=== PATIENT | female | born 1995 | race Caucasian/White ===

== ENCOUNTER 2017-04-01 00:38 | Emergency (ER) | payer BC, OTHER ==
[~2017-04-01] VITALS: Ht 152.4 cm; Wt 59.0 kg
[2017-04-01] MEDS ORDERED: PREPARATION H C51 G1 TOP (01:06)
[2017-04-01] MEDS ORDERED: HYDROCORTISONE30 G9 RECTAL (01:24)
== END 2017-04-01 01:54 | disposition home or self-care (01) ==
LOC: ER 00:38
DX: K64.9 Unspecified hemorrhoids (principal)